=== PATIENT | male | born 1955 | race Caucasian/White ===

== ENCOUNTER 2017-10-06 08:10 | Outpatient (CLI) | payer OTHER ==
--- NOTE | 2017-10-06 11:25 | ULT ---
RENAL ARTERIAL ULTRASOUND WITH DOPPLER: HISTORY: Hypertension. COMPARISON: None. TECHNIQUE: Sagittal and transverse imaging of the kidneys is performed. FINDINGS: RIGHT KIDNEY: Renal cortical thinning. No hydronephrosis. 6.2 x 11.7 x 5.5 cm. LEFT KIDNEY: Renal cortical thinning. No hydronephrosis. 6.8 x 10.5 x 6.8 cm. The urinary bladder is unremarkable. RENAL DOPPLER: Right renal artery velocity is 89.3 cm per second. Left renal artery velocity is 120 .0 cm per second. Aorta velocity is 89.6 cm per second. Right renal artery to aorta ratio 1.0. Left renal artery to aorta ratio 1.34. Right arcuate artery resistive index 0.71. Left arcuate artery resistive index 0.68. The urinary bladder is unremarkable. IMPRESSION: 1. Increased arcuate artery resistive index of the right kidney suggesting medical renal disease. 2. No sonographic evidence of significant renal artery stenosis; however, there is a discrepancy in the velocities of the main renal arteries. Better interrogation with magnetic resonance angiogram of the renal arteries or CT angiogram of the renal arteries is recommended. POS: OFF
== END 2017-10-06 08:11 | disposition home or self-care (01) ==
LOC: ULT 08:10
PROVIDERS: ATTEND Internal Medicine Cardiovascular Disease
DX: I10 Essential (primary) hypertension (principal)
CPT/HCPCS: 36415; 76700; 76770; 82088; 83835; 84244

== ENCOUNTER 2019-06-27 18:00 | Outpatient (CLI) | payer MEDICARE | END 2019-06-27 18:01 | disposition home or self-care (01) | LOC: SLEEPLAB 18:00 | PROVIDERS: ATTEND Family Medicine | DX: G47.33 Obstructive sleep apnea (adult) (pediatric) (principal); R53.83 Other fatigue; R06.83 Snoring; I10 Essential (primary) hypertension; G47.00 Insomnia, unspecified; I26.99 Other pulmonary embolism without acute cor pulmonale; G47.31 Primary central sleep apnea; E66.9 Obesity, unspecified; Z68.32 Body mass index [BMI] 32.0-32.9, adult | CPT/HCPCS: 95806 ==

== ENCOUNTER 2019-08-09 20:30 | Outpatient (CLI) | payer MEDICARE | END 2019-08-09 20:31 | disposition home or self-care (01) | LOC: SLEEPLAB 20:30 | PROVIDERS: ATTEND Family Medicine | DX: G47.33 Obstructive sleep apnea (adult) (pediatric) (principal); R53.83 Other fatigue; R06.83 Snoring; E66.9 Obesity, unspecified; I10 Essential (primary) hypertension; G47.31 Primary central sleep apnea | CPT/HCPCS: 95811 ==

== ENCOUNTER 2019-09-19 20:30 | Outpatient (CLI) | payer MEDICARE | END 2019-09-19 20:31 | disposition home or self-care (01) | LOC: SLEEPLAB 20:30 | PROVIDERS: ATTEND Family Medicine | DX: G47.33 Obstructive sleep apnea (adult) (pediatric) (principal); G47.31 Primary central sleep apnea | CPT/HCPCS: 95811 ==